=== PATIENT | male | born 1970 | race Caucasian/White ===

== ENCOUNTER 2016-04-14 11:51 | Emergency (ER) | payer SELFPAY ==
[2016-04-14 16:20] LABS: BASOPHILS 0.4 % (0.0-2.0); EOSINOPHILS 0.6 % (0-7); HEMATOCRIT 47.1 % (42.0-54.0); HEMOGLOBIN 15.7 g/dL (13.5-17.5); MCH 31.3 pg (26.0-34.0); MCHC 33.3 g/dL (31.0-37.0); MCV 93.8 fL (80.0-100.0); MEAN PLATELET VOLUME 11.3 fL (7.4-10.4); MONOCYTES 13.7 % (2-11); NEUTROPHILS 63.3 % (40-80); PLATELET COUNT 134 10x3/uL (130-400); RBC 5.02 10x6/uL (4.20-6.10); RDW 12.4 % (11.5-14.5); WBC 5.3 10x3/uL (4.8-10.8)
[2016-04-14 16:33] LABS: ALBUMIN 3.6 g/dL (3.4-5.0); ALKALINE PHOSPHATASE 60 U/L (46-116); ALT (SGPT) 43 U/L (10-68); CALC OSMOLALITY 275 mosm/kg (275-300); CALCIUM 9.4 mg/dL (8.5-10.1); CARBON DIOXIDE 31.5 mmol/L (21.0-32.0); CHLORIDE - SERUM 102 mmol/L (98-107); CREATININE - SERUM 0.9 mg/dL (0.6-1.3); GLUCOSE 97 mg/dL (74-106); PROTEIN - SERUM 7.5 g/dL (6.4-8.2); SODIUM 139 mmol/L (136-145); UREA NITROGEN 6 mg/dL (7-18); eGFR NON AFRICAN AMERICAN > 90 mL/min (90-120)
== END 2016-04-14 18:00 | disposition home or self-care (01) ==
LOC: D.ER 11:51
PROVIDERS: Emergency Medicine
DX: R55 Syncope and collapse (principal); E86.0 Dehydration